=== PATIENT | female | born 1940 | race African-American/Black ===

== ENCOUNTER 2018-07-03 06:15 | Day surgery (SDC) | payer BC ==
[~2018-07-03] VITALS: Ht 152.4 cm; Wt 88.5 kg
[2018-07-03] MEDS ORDERED: CEFAZOLIN SOD 1 GM in D5W 50 ML IV ONE (07:30)
[2018-07-03] MEDS ORDERED: PROPOFOL 200MG/ 20ML VIAL (DIPRIVAN) IV ONE (09:50)
[2018-07-03] MEDS ORDERED: SEVOFLURANE 15 MIN GAS INH ONE (09:50)
[2018-07-03] MEDS ORDERED: ROCURONIUM BROMIDE 10 MG/ML (ZEMURON) IV ONE (09:50)
[2018-07-03] MEDS ORDERED: WATER FOR IRRIGATION,STERILE 1,000 ML IRRIG.SOLN IR ONE (09:50)
[2018-07-03] MEDS ORDERED: BUPIVACAINE /PF 0.25% 30 ML VIAL INJ ONE (09:50)
[2018-07-03] MEDS ORDERED: MIDAZOLAM HCL 5 MG/5 ML VIAL IVP ONE (09:50)
[2018-07-03] MEDS ORDERED: fentaNYL CITRATE/PF 100 MCG/2 ML AMP IVP ONE (09:50)
[2018-07-03] MEDS ORDERED: CLINDAMYCIN PHOSPHATE 900 mg/50mL D5W IV ONE (09:50)
[2018-07-03] MEDS ORDERED: fentaNYL CITRATE/PF 100 MCG/2 ML AMP IVP PRN ×2 (10:45)
[2018-07-03] MEDS ORDERED: ONDANSETRON HCL 4 MG/2 ML VIAL IVP PRN (10:45)
[2018-07-03] MEDS ORDERED: D5/0.45 NS 1,000 ML IV SCH (11:24)
[2018-07-03] MEDS ORDERED: ACETAMINOPHEN/CODEINE 300 MG-30 MG TABLET PO PRN (11:30)
[2018-07-03 14:07] VITALS: BP_SYST 143
== END 2018-07-03 13:55 | disposition home or self-care (01) ==
LOC: SDS 06:15 → SMU 06:15 → SDS 13:55
PROVIDERS: ATTEND Colon & Rectal Surgery
DX: D05.11 Intraductal carcinoma in situ of right breast (principal); K21.9 Gastro-esophageal reflux disease without esophagitis; I10 Essential (primary) hypertension; I25.10 Atherosclerotic heart disease of native coronary artery without angina pectoris; M54.16 Radiculopathy, lumbar region; Z79.899 Other long term (current) drug therapy; E66.01 Morbid (severe) obesity due to excess calories; E11.51 Type 2 diabetes mellitus with diabetic peripheral angiopathy without gangrene; Z98.890 Other specified postprocedural states; Z90.710 Acquired absence of both cervix and uterus; Z82.49 Family history of ischemic heart disease and other diseases of the circulatory system; Z68.36 Body mass index [BMI] 36.0-36.9, adult; Z88.0 Allergy status to penicillin; Z88.8 Allergy status to other drugs, medicaments and biological substances; Z83.3 Family history of diabetes mellitus; Z80.42 Family history of malignant neoplasm of prostate; Z79.01 Long term (current) use of anticoagulants
CPT/HCPCS: 19081; 19301; 88305; 88307; 88342; J2250; J2704; J3010; J3490 ×2; J7120; 76098-TC; J0690; J7060